=== PATIENT | female | born 2000 | race Caucasian/White ===

== ENCOUNTER 2022-04-04 10:32 | Emergency (ER) | payer BC, SELFPAY ==
[2022-04-04 10:56] VITALS: BP 117/72; PULSE 91; RESP 20; TEMP 36.8; O2SAT 100
--- NOTE | 2022-04-04 11:30 | ED.GENADULT ---
HPI - General Adult General Chief complaint: Extremity Injury, Lower Stated complaint: left ankle pain,right knee pain Time Seen by Provider: 04/04/22 11:30 Source: patient, RN notes reviewed and old records reviewed Mode of arrival: ambulatory Limitations: no limitations History of Present Illness HPI narrative: 21 year old female who presents to [facility] care with complaints of right knee discomfort since to lateral aspect with no swelling or decreased mobility. Patient reports that she has had some left lateral ankle discomfort which started 2 weeks ago and did seem to get better but she went running again now pain is back. Patient denies any fall or twisting motions while running was running out side. has not taken any routine Ibuprofen or used any ice or compression to areas MD complaint: right knee pain and left ankle pain Onset (ago): day(s) (4 days right knee 2 weeks left ankle) Severity scale (1-10): 2 Treatments prior to arrival: none Related Data Home Medications Medication Instructions Recorded Confirmed No Home Medications 04/04/22 04/04/22 Allergies Allergy/AdvReac Type Severity Reaction Status Date / Time No Known Allergies Allergy Verified 04/04/22 11:02 Review of Systems Review of Systems: CONSTITUTIONAL: Denies fever, chills, or sweats. EYES: Denies visual changes, redness, or discharge. ENT: Denies rhinorrhea, congestion, sore throat, or otalgia. CARDIOVASCULAR: Denies chest pain, palpitations, or edema. RESPIRATORY: Denies cough or dyspnea. GASTROINTESTINAL: Denies abdominal pain, nausea, vomiting, or diarrhea. GENITOURINARY: Denies dysuria or hematuria. SKIN: Denies rash or itching. MUSCULOSKELETAL: Denies back pain,right lateral knee pain and lateral left ankle joint pain, or myalgia. NEUROLOGIC: Denies headache, numbness, or weakness. PSYCHIATRIC: Denies anxiety or depression. All systems reviewed & are unremarkable except as noted in HPI and below PMFSH Social History Social History (Updated 04/05/22 @ 08:05 by Kristin Nino NP) Smoking status: Never smoker Alcohol intake: current Alcohol use details: rare social Substance use: never Gender identity (if verbalized by the patient): Female Comments At time of signature, agree with nursing past medical, surgical, social and family history. There is no relevant family history pertinent to the presenting complaint Exam Narrative: GENERAL: Well-appearing, well-nourished, and in no acute distress. HEAD: Normocephalic, atraumatic. EYES: PERRLA and EOMI. ENT: Nares clear, no rhinorrhea or epistaxis. Mucous membranes moist.TM's normal with good light reflex, throat pink with no lesions or exudates or swelling noted NECK: Supple.No lymphadenopathy CHEST: Clear to auscultation. No respiratory distress.SAO2 100% on room air HEART: Regular rate and rhythm. No murmur heard. Normal peripheral pulses ABDOMEN: Soft, nontender, nondistended, normal active bowel sounds. EXTREMITIES: Normal range of motion. No edema.lateral right knee pain, full ROM noted, negative for laxity of joint no increased pain with varus and valgus maneuvers , left ankle lateral discomfort under calcaneus with full ROM of ankle joint noted,gait steady without limp. No swelling or bruising noted to areas of discomfort. SKIN: Warm, dry, no rash. NEURO: No focal deficits. Alert and oriented x3. . Course Course Emergency Course: Patient is aware of diagnosis, understands and agrees to treatment plan.? Anticipatory guidance given.? Patient agrees to follow-up as directed and is aware of reasons to seek care at the emergency department. Portions of this record may have been created with voice recognition software Level of Care: Express Care Visit Vital Signs Vital signs: Vital Signs Temperature 36.8 C 04/04/22 10:56 Pulse Rate 91 04/04/22 10:56 Respiratory Rate 20 04/04/22 10:56 Blood Pressure 117/72 04/04/22 10:56 Pulse Oximetry 100 04/04/22 10:
== END 2022-04-04 11:45 | disposition home or self-care (01) ==
PROVIDERS: Emergency Provider Registered Nurse
DX: S93.402A Sprain of unspecified ligament of left ankle, initial encounter (principal); S96.912A Strain of unspecified muscle and tendon at ankle and foot level, left foot, initial encounter; X58.XXXA Exposure to other specified factors, initial encounter; Y93.02 Activity, running; M25.561 Pain in right knee
CPT/HCPCS: 99212; G0463